=== PATIENT | male | born 1965 | race African-American/Black ===

== ENCOUNTER 2023-08-03 19:37 | Emergency (ER) | payer BC, OTHER ==
[~2023-08-03] VITALS: Ht 167.6 cm; Wt 79.5 kg
[~2023-08-03 19:37] MED LIST: HERPES MED PO
[2023-08-03 19:55] VITALS: TEMP 98.5
[2023-08-03 20:36] VITALS: BP 147/77; PULSE 86; RESP 16
[2023-08-03] MEDS: HYDROCODONE/ACETAMINOPHEN 5-325 MG TABLET PO ONE (22:49)
[2023-08-03] MEDS ORDERED: LIDOCAINE/PF 1% 5 ML VIAL ONE (23:06)
[2023-08-03] MEDS: LIDOCAINE 1% 30 ML/SOD BICARB 8.4% 4 ML SQ ONE (23:08)
[2023-08-03] MEDS ORDERED: LIDOCAINE 1% 10 ML VIAL ONE (23:12)
[2023-08-04] MEDS ORDERED: OXYC-38 PO (00:53)
== END 2023-08-04 01:46 | disposition home or self-care (01) ==
LOC: EMS 19:37
DX: S63.264A Dislocation of metacarpophalangeal joint of right ring finger, initial encounter (principal); S63.266A Dislocation of metacarpophalangeal joint of right little finger, initial encounter; I10 Essential (primary) hypertension; X58.XXXA Exposure to other specified factors, initial encounter; Y93.89 Activity, other specified; Y92.89 Other specified places as the place of occurrence of the external cause; Y99.8 Other external cause status
CPT/HCPCS: 99284; 73130; 73200; 73110; J2001; J3490; 26700